=== PATIENT | male | born 1980 | race Caucasian/White ===

== ENCOUNTER 2019-07-28 14:45 | Emergency (ER) | payer OTHER, MEDICAID ==
[~2019-07-28] VITALS: Ht 175.3 cm; Wt 87.5 kg
[2019-07-28 18:01] VITALS: BP 143/88
== END 2019-07-28 18:28 | disposition home or self-care (01) ==
LOC: ER 14:45
DX: J06.9 Acute upper respiratory infection, unspecified (principal); F12.10 Cannabis abuse, uncomplicated

== ENCOUNTER 2021-01-26 15:52 | Emergency (ER) | payer MEDICAID, OTHER ==
[~2021-01-26] VITALS: Ht 175.3 cm; Wt 86.2 kg
[2021-01-26] MEDS ORDERED: IBUPROFEN 800 MG TAB PO ONE (17:30)
[2021-01-26 17:53] VITALS: BP 137/84
== END 2021-01-26 17:55 | disposition home or self-care (01) ==
LOC: ER 15:54
DX: S90.112A Contusion of left great toe without damage to nail, initial encounter (principal); F12.10 Cannabis abuse, uncomplicated; W22.8XXA Striking against or struck by other objects, initial encounter; Y93.89 Activity, other specified; Y92.89 Other specified places as the place of occurrence of the external cause; Y99.8 Other external cause status
CPT/HCPCS: 73630